=== PATIENT | female | born 1970 | race Caucasian/White ===

== ENCOUNTER 2016-11-17 12:37 | Inpatient (IN) | payer OTHER ==
[~2016-11-17] VITALS: Ht 165.1 cm; Wt 106.6 kg
[2016-11-17 13:38] LABS: HEMOGLOBIN 11.7 gm/dl (12.3-15.3); RED BLOOD COUNT 4.36 M/UL (4.00-5.10); WHITE BLOOD COUNT 14.3 K/UL (4.5-11.0)
[2016-11-17 13:50] LABS: BUN/CREATININE RATIO 16 (0-10)
[2016-11-18 07:33] LABS: HEMOGLOBIN 10.6 gm/dl (12.3-15.3)
[2016-11-18 07:34] LABS: WHITE BLOOD COUNT 9.8 K/UL (4.5-11.0)
[2016-11-18 07:48] LABS: BUN/CREATININE RATIO 18 (0-10)
[2016-11-18] MEDS ORDERED: LORTAB 10-3251 EACH PO (08:42)
[2016-11-18] MEDS ORDERED: NEURONTIN 400400 MG PO (08:43)
[2016-11-18] MEDS ORDERED: TRAMADOL HCL50 MG PO (08:43)
[2016-11-18] MEDS ORDERED: ROBAXIN 750 MG750 MG PO (08:45)
[2016-11-18] MEDS ORDERED: ASPIRIN81 MG PO (08:46)
[2016-11-18] MEDS ORDERED: NORVASC 5 MG TAB5 MG PO (08:46)
[2016-11-18] MEDS ORDERED: KLONOPIN TAB 00.5 MG PO (08:47)
[2016-11-18] MEDS ORDERED: PROTONIX40 MG PO (08:47)
[2016-11-18] MEDS ORDERED: CELEXA 20MG TAB20 MG PO (08:47)
[2016-11-18 14:54] LABS: ACINETOBACTER BAUMANNII Not Detected (Negative); CANDIDA ALBICANS Not Detected (Negative); CANDIDA KRUSEI Not Detected (Negative); CANDIDA TROPICALIS Not Detected (Negative); ENTEROCOCCUS Not Detected (Negative); ESCHERICHIA COLI Not Detected (Negative); HAEMOPHILUS INFLUENZAE Not Detected (Negative); KLEBSIELLA OXYTOCA Not Detected (Negative); KLEBSIELLA PNEUMONIAE Not Detected (Negative); KPC-CARBAPENEM-RESISTANCE GENE Not Detected (Negative); PROTEUS Not Detected (Negative); PSEUDOMONAS AERUGINOSA Not Detected (Negative); SERRATIA MARCESANS Not Detected (Negative); STAPHYLOCOCCUS AUREUS Not Detected (Negative); STREP AGALACTIAE (GROUP B) Not Detected (Negative); STREP PYOGENES (GROUP A) Not Detected (Negative); STREPTOCOCCUS Not Detected (Negative); mecA (METHICILLIN RESIST GENE Not Detected (Negative); vanA/B (VANCOMYCIN RESIST GENE Not Detected (Negative)
[2016-11-18 16:05] LABS: STAPHYLOCOCCUS DETECTED (Negative)
[2016-11-19 05:03] LABS: HEMOGLOBIN 10.4 gm/dl (12.3-15.3); RED BLOOD COUNT 3.95 M/UL (4.00-5.10); WHITE BLOOD COUNT 9.2 K/UL (4.5-11.0)
[2016-11-19 08:22] LABS: BUN/CREATININE RATIO 13 (0-10)
[2016-11-20 05:33] LABS: BUN/CREATININE RATIO 16 (0-10)
[2016-11-21 06:03] LABS: HEMOGLOBIN 9.7 gm/dl (12.3-15.3); RED BLOOD COUNT 3.64 M/UL (4.00-5.10)
[2016-11-21 06:04] LABS: WHITE BLOOD COUNT 4.8 K/UL (4.5-11.0)
[2016-11-21 06:23] LABS: BUN/CREATININE RATIO 18 (0-10)
[2016-11-22 05:48] LABS: HEMOGLOBIN 9.9 gm/dl (12.3-15.3); RED BLOOD COUNT 3.72 M/UL (4.00-5.10); WHITE BLOOD COUNT 4.9 K/UL (4.5-11.0)
[2016-11-22 06:39] LABS: BUN/CREATININE RATIO 18 (0-10)
[2016-11-22] MEDS ORDERED: IRON325 M1 PO (12:35)
[2016-11-22] MEDS ORDERED: BACTROBAN OINT22 GM EXT (12:36)
[2016-11-22] MEDS ORDERED: THERAGRAN TAB1 EA PO (12:36)
[2016-11-22] MEDS ORDERED: BACTRIM DS TAB1 EACH PO (12:36)
== END 2016-11-22 13:15 | disposition home or self-care (01) | DRG 854 ==
LOC: ER1 12:37 → ZEROF 16:47 → M/S 16:47
PROVIDERS: Emergency Medicine; Internal Medicine Infectious Disease; Surgery; ADMIT Family Medicine
PROC: 0J910ZZ Drainage of Face Subcutaneous Tissue and Fascia, Open Approach (ICD-10-PCS; principal; 2016-11-21 07:45)
DX: A41.9 Sepsis, unspecified organism (principal); L02.01 Cutaneous abscess of face; F11.20 Opioid dependence, uncomplicated; E87.2 Acidosis; L03.211 Cellulitis of face; I10 Essential (primary) hypertension; G89.4 Chronic pain syndrome; D50.9 Iron deficiency anemia, unspecified; E53.8 Deficiency of other specified B group vitamins; Z98.84 Bariatric surgery status; G62.9 Polyneuropathy, unspecified; R51 Headache; Z22.322 Carrier or suspected carrier of Methicillin resistant Staphylococcus aureus; E66.9 Obesity, unspecified; Z68.39 Body mass index [BMI] 39.0-39.9, adult; Z79.82 Long term (current) use of aspirin; Z79.899 Other long term (current) drug therapy; Z87.891 Personal history of nicotine dependence; Z82.49 Family history of ischemic heart disease and other diseases of the circulatory system; Z80.8 Family history of malignant neoplasm of other organs or systems
CPT/HCPCS: 36415; 71010; 80048; 80053; 80202; 81001; 82550; 82607; 82728; 82746; 82962; 83540; 83550; 83605; 84443; 85025; 85027; 86140; 87040; 87077; 87150; 87186; 96361; 96365; 96366; 96372; 96375; 99284; J1335; J1650; J1885; J2250; J2270; J3010; J3370; J7050; J7070; J7120

== ENCOUNTER 2016-12-14 21:21 | Emergency (ER) | payer OTHER ==
[~2016-12-14 21:21] MED LIST: ASPIRIN81 MG PO; BACTRIM DS TAB1 EACH PO; BACTROBAN OINT22 GM EXT; CELEXA 20MG TAB20 MG PO; IRON325 M1 PO; KLONOPIN TAB 00.5 MG PO; LORTAB 10-3251 EACH PO; NEURONTIN 400400 MG PO; NORVASC 5 MG TAB5 MG PO; PROTONIX40 MG PO; ROBAXIN 750 MG750 MG PO; THERAGRAN TAB1 EA PO; TRAMADOL HCL50 MG PO
[2016-12-14 23:07] LABS: HEMOGLOBIN 10.4 gm/dl (12.3-15.3); RED BLOOD COUNT 3.91 M/UL (4.00-5.10)
== END 2016-12-15 07:05 | disposition home or self-care (01) ==
LOC: ER1 21:21
PROVIDERS: Student in an Organized Health Care Education/Training Program
DX: J18.9 Pneumonia, unspecified organism (principal); R52 Pain, unspecified; I10 Essential (primary) hypertension; J44.9 Chronic obstructive pulmonary disease, unspecified; Z90.710 Acquired absence of both cervix and uterus
CPT/HCPCS: 36415; 71020; 80053; 81001; 82550; 82553; 83605; 83690; 83874; 83880; 84484; 85025; 87040; 87086; 93005; 94640; 94664; 96361; 96365; 99284; J0696; J1956; J7030; J7050

== ENCOUNTER 2016-12-16 08:56 | Observation (INO) | payer OTHER ==
[~2016-12-16] VITALS: Ht 162.6 cm; Wt 117.0 kg
[2016-12-16 11:04] LABS: HEMOGLOBIN 9.5 gm/dl (12.3-15.3); RED BLOOD COUNT 3.62 M/UL (4.00-5.10); WHITE BLOOD COUNT 14.2 K/UL (4.5-11.0)
[2016-12-16 11:27] LABS: BUN/CREATININE RATIO 11 (0-10)
[2016-12-17 04:44] LABS: HEMOGLOBIN 8.9 gm/dl (12.3-15.3); RED BLOOD COUNT 3.39 M/UL (4.00-5.10)
[2016-12-17 04:46] LABS: WHITE BLOOD COUNT 8.5 K/UL (4.5-11.0)
[2016-12-17 04:56] LABS: BUN/CREATININE RATIO 8 (0-10)
--- NOTE | 2016-12-17 15:09 | NUR ---
TELEMETRY CALLED ME TO STATE THAT THE PATIENT HAD A RUN OF NON-SUSTAINED VTACH THAT LASTED FOR 4-5 BEATS. I LOOKED OVER AT THE MONITOR AND THE PATIENT WAS NOT ON THE MONITOR. IT HAD HAPPENED AT 1225 AND IT WAS AROUND 1400. THE PATIENT WAS OFF THE MONITOR BECAUSE SHE WAS TAKING A SHOWER. I WENT TO ASSESS THE PATIENT AND SHE WAS STILL IN THE SHOWER. 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 SHE STATED SHE HAD NOT HAD ANY CHEST PAIN TODAY. HER BP WAS 128/70 AND HEART RATE WAS RUNNING 80S ON THE MONITOR. I CALLED AND SENT A STRIP DOWN TO HIM IN THE ED. HE CALLED ME BACK AND ORDERED AN ECHO AND A MAG LEVEL NOW.
[2016-12-18 04:19] LABS: HEMOGLOBIN 8.8 gm/dl (12.3-15.3); RED BLOOD COUNT 3.4 M/UL (4.00-5.10)
[2016-12-18 04:27] LABS: WHITE BLOOD COUNT 6.3 K/UL (4.5-11.0)
[2016-12-18 04:48] LABS: BUN/CREATININE RATIO 13 (0-10)
[2016-12-18] MEDS ORDERED: FLAGYL500 MG PO (16:17)
[2016-12-18] MEDS ORDERED: CEFUROXIME500 MG PO (16:17)
== END 2016-12-18 17:00 | disposition home or self-care (01) ==
LOC: ER1 08:56 → ZEROF 14:40 → MED SURG 4 14:40
PROVIDERS: Family Medicine; ADMIT Internal Medicine
DX: R09.02 Hypoxemia (principal); M79.7 Fibromyalgia; G89.4 Chronic pain syndrome; F11.20 Opioid dependence, uncomplicated; D63.8 Anemia in other chronic diseases classified elsewhere; E53.8 Deficiency of other specified B group vitamins; M19.90 Unspecified osteoarthritis, unspecified site; D72.829 Elevated white blood cell count, unspecified; R79.89 Other specified abnormal findings of blood chemistry; G62.9 Polyneuropathy, unspecified; E61.1 Iron deficiency; I10 Essential (primary) hypertension; Z86.14 Personal history of Methicillin resistant Staphylococcus aureus infection; Z98.84 Bariatric surgery status; Z90.710 Acquired absence of both cervix and uterus; Z79.899 Other long term (current) drug therapy; Z87.891 Personal history of nicotine dependence; Z82.49 Family history of ischemic heart disease and other diseases of the circulatory system
CPT/HCPCS: ECHO; 36415; 71010; 71020; 80048; 80053; 82550; 82553; 83605; 83735; 83874; 83880; 84484; 85025; 85027; 87040; 93005; 93306; 94640; 94664; 96360; 99285; G0378; J0696; J7030; J7050; Q0177

== ENCOUNTER 2017-01-12 02:58 | Inpatient (IN) | payer OTHER ==
[~2017-01-12] VITALS: Ht 162.6 cm; Wt 113.9 kg
[~2017-01-12 02:58] MED LIST changes: +CEFUROXIME500 MG PO; +FLAGYL500 MG PO
[2017-01-12 03:37] LABS: HEMOGLOBIN 10.7 gm/dl (12.3-15.3); RED BLOOD COUNT 4.04 M/UL (4.00-5.10); WHITE BLOOD COUNT 14.7 K/UL (4.5-11.0)
[2017-01-12 04:00] LABS: BUN/CREATININE RATIO 14 (0-10)
[2017-01-12] MEDS ORDERED: ULTRAM50 MG PO (07:47)
[2017-01-12] MEDS ORDERED: ASPIRIN CHEWABL81 MG PO (07:49)
[2017-01-12] MEDS ORDERED: HYDROXYZINE PAM25 MG PO (07:50)
[2017-01-12] MEDS ORDERED: VENLAFAXINE HCL75 MG PO (07:51)
[2017-01-12] MEDS ORDERED: BUSPIRONE HCL5 MG PO (07:54)
[2017-01-12] MEDS ORDERED: LASIX 40 MG TAB40 MG PO (07:56)
[2017-01-13 05:05] LABS: HEMOGLOBIN 9.3 gm/dl (12.3-15.3); WHITE BLOOD COUNT 12.1 K/UL (4.5-11.0)
[2017-01-13 05:06] LABS: RED BLOOD COUNT 3.57 M/UL (4.00-5.10)
[2017-01-13 05:24] LABS: BUN/CREATININE RATIO 16 (0-10)
[2017-01-14 04:27] LABS: HEMOGLOBIN 9.6 gm/dl (12.3-15.3); RED BLOOD COUNT 3.69 M/UL (4.00-5.10)
[2017-01-14 04:30] LABS: WHITE BLOOD COUNT 7.7 K/UL (4.5-11.0)
[2017-01-14] MEDS ORDERED: LEVAQUIN750 MG PO (17:23)
== END 2017-01-14 18:13 | disposition home or self-care (01) | DRG 871 ==
LOC: ER1 02:58 → MED SURG 4 06:02
PROVIDERS: Emergency Medicine; Internal Medicine Pulmonary Disease; ADMIT Internal Medicine
DX: A41.9 Sepsis, unspecified organism (principal); J18.9 Pneumonia, unspecified organism; Z68.41 Body mass index [BMI] 40.0-44.9, adult; E66.9 Obesity, unspecified; I10 Essential (primary) hypertension; D50.9 Iron deficiency anemia, unspecified; G62.9 Polyneuropathy, unspecified; M19.90 Unspecified osteoarthritis, unspecified site; G89.29 Other chronic pain; M79.7 Fibromyalgia; F43.10 Post-traumatic stress disorder, unspecified; F32.9 Major depressive disorder, single episode, unspecified; F41.9 Anxiety disorder, unspecified; Z87.01 Personal history of pneumonia (recurrent); Z87.891 Personal history of nicotine dependence; Z98.84 Bariatric surgery status; Z79.891 Long term (current) use of opiate analgesic; Z79.82 Long term (current) use of aspirin; Z79.1 Long term (current) use of non-steroidal anti-inflammatories (NSAID); Z79.899 Other long term (current) drug therapy; Z90.710 Acquired absence of both cervix and uterus; Z98.890 Other specified postprocedural states; Z82.49 Family history of ischemic heart disease and other diseases of the circulatory system
CPT/HCPCS: 36415; 71010; 71020; 71250; 80048; 80053; 80307; 81001; 82550; 82553; 82784; 83605; 83690; 83874; 84484; 85025; 85027; 85610; 85730; 86039; 86140; 86403; 86431; 87040; 87081; 87086; 87880; 93005; 96374; 96375; 99291; J1650; J1885; J1956; J2185; J3370; Q0177

== ENCOUNTER 2020-10-14 13:24 | Inpatient (IN) | payer OTHER, SELFPAY ==
[~2020-10-14] VITALS: Ht 162.6 cm; Wt 120.2 kg
[~2020-10-14 13:24] MED LIST changes: +ACID CONTROL150 MG PO; +ALBUTEROL2.5 MG/3 M NEB; +AMLODIPINE BESY10 MG PO; +ASPIRIN 325MG325 MG PO; +ASPIRIN CHEWABL81 MG PO; +ASPIRIN325 MG PO; +BUSPIRONE HCL5 MG PO; +COMBIVENT RESPIM4 GM INH; +DOXEPIN HCL10 MG PO; +DOXEPIN HCL25 MG PO; +EFFEXOR 37.537.5 MG PO; +ESCITALOPRAM OX10 MG PO; +FOLIC ACID 1 MG1 MG PO; +GABAPENTIN800 MG PO; +GLUCOPHAGE 500500 MG PO; +HYDROCHLOROTHIA25 MG PO; +HYDROXYCHLOROQ200 MG PO; +HYDROXYZINE PAM25 MG PO; +HYDROXYZINE PAM50 MG PO; +LAMOTRIGINE100 MG PO; +LASIX 40 MG TAB40 MG PO; +LEVAQUIN750 MG PO; +METHOTREXATE T2.5 MG PO; +MULTIVITAMINS1 EAC1 PO; +NORCO 10-325 T1 EACH PO; +PERCOCET 5-3251 EACH PO; +PREDNISONE20 MG PO; +PROTONIX 40 MG40 M1 PO; +RISPERIDONE0.5 MG PO; +ROBITUSSIN AC PO; +SEROQUEL100 MG PO; +ULTRAM50 MG PO; +VENLAFAXINE HCL75 MG PO; +VENTOLIN HFA 66.7 GM INH
[2020-10-14 14:24] LABS: HEMOGLOBIN 10.9 gm/dl (12.3-15.3); RED BLOOD COUNT 4.08 M/UL (4.00-5.10); WHITE BLOOD COUNT 17.5 K/UL (4.5-11.0)
[2020-10-14 14:51] LABS: BUN/CREATININE RATIO 13 (0-10)
[2020-10-14] MEDS ORDERED: PREDNISONE10 MG PO (19:41)
[2020-10-14] MEDS ORDERED: HYDROCODON-ACE1 EAC6 PO (19:42)
[2020-10-14] MEDS ORDERED: METHOTREXATE T2.5 MG PO (19:44)
[2020-10-14] MEDS ORDERED: METHOCARBAMOL500 MG PO (21:05)
[2020-10-14] MEDS ORDERED: BUMETANIDE2 MG PO (21:09)
[2020-10-15 05:28] LABS: HEMOGLOBIN 9.6 gm/dl (12.3-15.3)
[2020-10-15 05:30] LABS: RED BLOOD COUNT 3.61 M/UL (4.00-5.10); WHITE BLOOD COUNT 12.1 K/UL (4.5-11.0)
[2020-10-15 05:45] LABS: BUN/CREATININE RATIO 13 (0-10)
[2020-10-15 11:14] LABS: ACINETOBACTER BAUMANNII Not Detected (Negative); CANDIDA ALBICANS Not Detected (Negative); CANDIDA KRUSEI Not Detected (Negative); CANDIDA TROPICALIS Not Detected (Negative); ENTEROCOCCUS Not Detected (Negative); ESCHERICHIA COLI Not Detected (Negative); HAEMOPHILUS INFLUENZAE Not Detected (Negative); KLEBSIELLA OXYTOCA Not Detected (Negative); KLEBSIELLA PNEUMONIAE Not Detected (Negative); KPC-CARBAPENEM-RESISTANCE GENE Not Detected (Negative); PROTEUS Not Detected (Negative); PSEUDOMONAS AERUGINOSA Not Detected (Negative); SERRATIA MARCESANS Not Detected (Negative); STAPHYLOCOCCUS AUREUS Not Detected (Negative); STREP AGALACTIAE (GROUP B) Not Detected (Negative); STREP PYOGENES (GROUP A) Not Detected (Negative); STREPTOCOCCUS Not Detected (Negative); vanA/B (VANCOMYCIN RESIST GENE Not Detected (Negative)
[2020-10-15 12:39] LABS: STAPHYLOCOCCUS DETECTED (Negative); mecA (METHICILLIN RESIST GENE DETECTED (Negative)
[2020-10-16 04:22] LABS: BUN/CREATININE RATIO 12 (0-10)
[2020-10-17 03:44] LABS: HEMOGLOBIN 8.5 gm/dl (12.3-15.3)
[2020-10-17 03:50] LABS: RED BLOOD COUNT 3.21 M/UL (4.00-5.10); WHITE BLOOD COUNT 6.9 K/UL (4.5-11.0)
[2020-10-17 04:09] LABS: BUN/CREATININE RATIO 16 (0-10)
[2020-10-18] MEDS ORDERED: MEDROL4 MG PO (15:15)
[2020-10-18] MEDS ORDERED: OMNICEF 300 MG300 MG PO (15:15)
[2020-10-18] MEDS ORDERED: ANORO ELLIPTA1 EACH INH (15:15)
[2020-10-18 16:15] LABS: IMMUNOGLOBULIN G, QN, SERUM 655 mg/dL (586-1602)
[2021-01-02] MEDS ORDERED: AMOXICILLIN875 MG PO (15:48)
[2021-01-03] MEDS ORDERED: ZITHROMAX250 MG PO (15:48)
[2021-01-03] MEDS ORDERED: FLUCONAZOLE150 MG PO (15:48)
== END 2020-10-18 17:58 | disposition home or self-care (01) | DRG 871 ==
LOC: ER1 13:24 → CDU 15:13 → MED SURG 4 15:13
PROVIDERS: Internal Medicine; Nurse Practitioner Family; Physician Assistant Medical; ADMIT Internal Medicine
DX: A41.9 Sepsis, unspecified organism (principal); J18.9 Pneumonia, unspecified organism; J96.01 Acute respiratory failure with hypoxia; J44.0 Chronic obstructive pulmonary disease with (acute) lower respiratory infection; J44.1 Chronic obstructive pulmonary disease with (acute) exacerbation; Z68.42 Body mass index [BMI] 45.0-49.9, adult; R65.20 Severe sepsis without septic shock; Z20.822 Contact with and (suspected) exposure to COVID-19; D72.829 Elevated white blood cell count, unspecified; I10 Essential (primary) hypertension; F17.210 Nicotine dependence, cigarettes, uncomplicated; Z90.49 Acquired absence of other specified parts of digestive tract; Z98.84 Bariatric surgery status; Z87.01 Personal history of pneumonia (recurrent); Z86.14 Personal history of Methicillin resistant Staphylococcus aureus infection; Z79.899 Other long term (current) drug therapy; Z79.82 Long term (current) use of aspirin; E66.01 Morbid (severe) obesity due to excess calories
CPT/HCPCS: ECHO; 0240U; 36415; 36600; 71045; 71046; 80048; 80053; 80202; 82550; 82553; 82784; 82787; 82803; 82962; 83036; 83605; 83735; 83880; 84484; 85025; 85027; 85379; 86738; 87040; 87077; 87150; 87186; 93005; 93306; 94640; 94664; 94760; 96365; 96366; 96367; 99285; J1650; J1940; J2543; J2920; J3370; J7030; J7070

== ENCOUNTER → 2020-11-28 | Outpatient (CLI) | payer OTHER, SELFPAY ==
[~2020-11-28] MED LIST changes: +AMOXICILLIN875 MG PO; +ANORO ELLIPTA1 EACH INH; +BUMETANIDE2 MG PO; +CEFUROXIME250 MG PO; +DRISDOL1250 MCG PO; +FLUCONAZOLE150 MG PO; +HYDROCODON-ACE1 EAC6 PO; +LEXAPRO20 MG PO; +MAGIC MOUTHWASH PO; +MEDROL4 MG PO; +METHOCARBAMOL500 MG PO; +OMNICEF 300 MG300 MG PO; +PHENERGAN W/CO473 M1 PO; +PREDNISONE 20 M20 MG PO; +PREDNISONE10 MG PO; +PROVENTIL HFA6.7 GM INH; +TESSALON PERLE100 MG PO; +ZITHROMAX250 MG PO
== END ==
LOC: HEART 5 12:05
DX: L02.419 Cutaneous abscess of limb, unspecified (principal); F41.9 Anxiety disorder, unspecified; J44.9 Chronic obstructive pulmonary disease, unspecified
CPT/HCPCS: 36600; 71046; 82803; 94010

== ENCOUNTER 2020-12-13 12:21 | Emergency (ER) | payer OTHER, SELFPAY ==
[~2020-12-13 12:21] MED LIST changes: -AMOXICILLIN875 MG PO; -CEFUROXIME250 MG PO; -DRISDOL1250 MCG PO; -FLUCONAZOLE150 MG PO; -LEXAPRO20 MG PO; -MAGIC MOUTHWASH PO; -PHENERGAN W/CO473 M1 PO; -PREDNISONE 20 M20 MG PO; -PROVENTIL HFA6.7 GM INH; -TESSALON PERLE100 MG PO; -ZITHROMAX250 MG PO
[2020-12-13] MEDS ORDERED: TESSALON PERLE100 MG PO (15:26)
[2020-12-13] MEDS ORDERED: PROVENTIL HFA6.7 GM INH (15:26)
[2021-01-02] MEDS ORDERED: AMOXICILLIN875 MG PO (15:48)
[2021-01-03] MEDS ORDERED: ZITHROMAX250 MG PO (15:48)
[2021-01-03] MEDS ORDERED: FLUCONAZOLE150 MG PO (15:48)
== END 2020-12-13 16:20 | disposition home or self-care (01) ==
LOC: ER1 12:21
DX: J06.9 Acute upper respiratory infection, unspecified (principal); F17.210 Nicotine dependence, cigarettes, uncomplicated; Z20.822 Contact with and (suspected) exposure to COVID-19
CPT/HCPCS: 0240U; 71045; 99283

== ENCOUNTER 2021-01-04 08:02 | Inpatient (IN) | payer OTHER, SELFPAY ==
[~2021-01-04] VITALS: Ht 162.6 cm; Wt 122.5 kg
[~2021-01-04 08:02] MED LIST changes: +AMOXICILLIN875 MG PO; +FLUCONAZOLE150 MG PO; +PROVENTIL HFA6.7 GM INH; +TESSALON PERLE100 MG PO; +ZITHROMAX250 MG PO
[2021-01-04 09:00] LABS: HEMOGLOBIN 9.3 gm/dl (12.3-15.3); RED BLOOD COUNT 3.34 M/UL (4.00-5.10); WHITE BLOOD COUNT 8.8 K/UL (4.5-11.0)
[2021-01-04 10:56] LABS: BUN/CREATININE RATIO 15 (0-10)
[2021-01-04] MEDS ORDERED: PHENERGAN W/CO473 M1 PO (15:49)
[2021-01-04] MEDS ORDERED: DRISDOL1250 MCG PO (15:50)
[2021-01-04] MEDS ORDERED: BUMETANIDE2 MG PO (15:50)
[2021-01-04] MEDS ORDERED: MAGIC MOUTHWASH PO (15:50)
[2021-01-04] MEDS ORDERED: PREDNISONE 20 M20 MG PO (15:53)
[2021-01-04] MEDS ORDERED: LEXAPRO20 MG PO (21:08)
[2021-01-05 04:27] LABS: RED BLOOD COUNT 3.66 M/UL (4.00-5.10)
[2021-01-05 04:33] LABS: WHITE BLOOD COUNT 5.8 K/UL (4.5-11.0)
[2021-01-05 04:46] LABS: BUN/CREATININE RATIO 14 (0-10)
[2021-01-06 04:49] LABS: HEMOGLOBIN 9.4 gm/dl (12.3-15.3); RED BLOOD COUNT 3.42 M/UL (4.00-5.10)
[2021-01-06 04:57] LABS: WHITE BLOOD COUNT 3.9 K/UL (4.5-11.0)
[2021-01-06 07:01] LABS: BUN/CREATININE RATIO 14 (0-10)
[2021-01-08] MEDS ORDERED: CEFUROXIME250 MG PO (09:05)
== END 2021-01-08 11:24 | disposition home or self-care (01) | DRG 177 ==
LOC: ER1 08:02 → CDU 14:06 → MED SURG 4 16:07
PROVIDERS: Emergency Medicine; Physician Assistant Medical; ADMIT Internal Medicine
DX: J15.6 Pneumonia due to other Gram-negative bacteria (principal); J96.01 Acute respiratory failure with hypoxia; J44.0 Chronic obstructive pulmonary disease with (acute) lower respiratory infection; Z68.42 Body mass index [BMI] 45.0-49.9, adult; E87.6 Hypokalemia; I10 Essential (primary) hypertension; Z20.822 Contact with and (suspected) exposure to COVID-19; Z79.4 Long term (current) use of insulin; F17.210 Nicotine dependence, cigarettes, uncomplicated; M06.9 Rheumatoid arthritis, unspecified; M79.7 Fibromyalgia; E66.9 Obesity, unspecified; E11.9 Type 2 diabetes mellitus without complications; Z79.82 Long term (current) use of aspirin; Z86.14 Personal history of Methicillin resistant Staphylococcus aureus infection; Z87.01 Personal history of pneumonia (recurrent); Z90.49 Acquired absence of other specified parts of digestive tract; Z98.84 Bariatric surgery status
CPT/HCPCS: 0240U; 36415; 36600; 71045; 80048; 80053; 80202; 81001; 82550; 82553; 82803; 82962; 83605; 83690; 83735; 84132; 84484; 85025; 85027; 85379; 85610; 85730; 87040; 87081; 93005; 94640; 94664; 94760; 96374; 99285; J0696; J1650; J2543; J3370; J7030; J7070; Q9967

== ENCOUNTER → 2021-01-28 | Outpatient (CLI) | payer OTHER ==
[~2021-01-28] MED LIST changes: +CEFUROXIME250 MG PO; +DRISDOL1250 MCG PO; +LEXAPRO20 MG PO; +MAGIC MOUTHWASH PO; +PHENERGAN W/CO473 M1 PO; +PREDNISONE 20 M20 MG PO
== END ==
LOC: SLEEP 11:26
DX: G47.00 Insomnia, unspecified (principal); G47.30 Sleep apnea, unspecified; G47.33 Obstructive sleep apnea (adult) (pediatric); R09.02 Hypoxemia
CPT/HCPCS: 95810

== ENCOUNTER 2021-06-28 15:10 | Inpatient (IN) | payer OTHER ==
[~2021-06-28] VITALS: Ht 165.1 cm; Wt 108.9 kg
[2021-06-28 18:46] LABS: HEMOGLOBIN 12.2 gm/dl (12.3-15.3); RED BLOOD COUNT 4.29 M/UL (4.00-5.10); WHITE BLOOD COUNT 13.9 K/UL (4.5-11.0)
[2021-06-28 19:09] LABS: BUN/CREATININE RATIO 17 (0-10)
[2021-06-28] MEDS ORDERED: HUMIRA PEN40 MG/0.4 SQ (21:40)
[2021-06-28] MEDS ORDERED: BUPROPION XL150 MG PO (21:41)
[2021-06-29 06:23] LABS: HEMOGLOBIN 11.5 gm/dl (12.3-15.3); RED BLOOD COUNT 3.97 M/UL (4.00-5.10)
[2021-06-29 06:24] LABS: WHITE BLOOD COUNT 9.4 K/UL (4.5-11.0)
[2021-06-29 07:05] LABS: BUN/CREATININE RATIO 18 (0-10)
[2021-06-30 04:58] LABS: BUN/CREATININE RATIO 12 (0-10)
[2021-07-01 07:25] LABS: HEMOGLOBIN 11.1 gm/dl (12.3-15.3); RED BLOOD COUNT 3.75 M/UL (4.00-5.10); WHITE BLOOD COUNT 11.7 K/UL (4.5-11.0)
[2021-07-01 08:13] LABS: HIV SCREEN 4TH GENERATION WRFX Non Reactive (Non Reactive)
[2021-07-01 08:29] LABS: BUN/CREATININE RATIO 22 (0-10)
[2021-07-02 07:53] LABS: HEMOGLOBIN 11.4 gm/dl (12.3-15.3); RED BLOOD COUNT 3.98 M/UL (4.00-5.10)
[2021-07-02 08:01] LABS: WHITE BLOOD COUNT 8.1 K/UL (4.5-11.0)
[2021-07-02 08:20] LABS: BUN/CREATININE RATIO 25 (0-10)
[2021-07-03 07:44] LABS: BUN/CREATININE RATIO 29 (0-10)
[2021-07-03] MEDS ORDERED: PREDNISONE 20 M20 MG PO (12:26)
[2021-07-03] MEDS ORDERED: SENOKOT-S TABL1 EACH PO (12:39)
[2021-07-03 13:09] LABS: ANTI-DSDNA ANTIBODIES <1 IU/mL (0-9)
[2021-07-03 18:10] LABS: ANTIMYELOPEROXIDASE (MPO) ABS <9.0 U/mL (0.0-9.0); ANTIPROTEINASE 3 (PR-3) ABS <3.5 U/mL (0.0-3.5); ATYPICAL PANCA <1:20 titer (Neg:<1:20); CYTOPLASMIC (C-ANCA) <1:20 titer (Neg:<1:20); PERINUCLEAR (P-ANCA) <1:20 titer (Neg:<1:20)
[2021-07-05 10:14] LABS: ASPERGILLUS FUMAGATUS IGG Negative (Negative); AUREOBASIDIUM PULLULANS IGG Negative (Negative); MICROPOLYSPORA FAENI IGG Negative (Negative); PIGEON SERUM IGG Negative (Negative); THERMOACTINOMYCES SACCHARI IGG Negative (Negative); THERMOACTINOMYCES VULGARIS IGG Negative (Negative)
== END 2021-07-03 14:45 | disposition home or self-care (01) | DRG 205 ==
LOC: ER1 15:10 → M/S 20:46 → CDU 20:46 → M/S 06-29 01:25
PROVIDERS: Internal Medicine Infectious Disease; Internal Medicine Pulmonary Disease; Physician Assistant Medical; ADMIT Internal Medicine
DX: J70.4 Drug-induced interstitial lung disorders, unspecified (principal); J96.21 Acute and chronic respiratory failure with hypoxia; J96.22 Acute and chronic respiratory failure with hypercapnia; E87.1 Hypo-osmolality and hyponatremia; M32.9 Systemic lupus erythematosus, unspecified; M06.9 Rheumatoid arthritis, unspecified; Z20.822 Contact with and (suspected) exposure to COVID-19; E87.6 Hypokalemia; E66.01 Morbid (severe) obesity due to excess calories; I10 Essential (primary) hypertension; E11.65 Type 2 diabetes mellitus with hyperglycemia; T38.0X5A Adverse effect of glucocorticoids and synthetic analogues, initial encounter; F17.210 Nicotine dependence, cigarettes, uncomplicated; F32.A Depression, unspecified; J84.89 Other specified interstitial pulmonary diseases; G47.33 Obstructive sleep apnea (adult) (pediatric); M79.7 Fibromyalgia; G89.29 Other chronic pain; Z79.82 Long term (current) use of aspirin; Z98.890 Other specified postprocedural states; Z90.49 Acquired absence of other specified parts of digestive tract; Z98.84 Bariatric surgery status; Z79.899 Other long term (current) drug therapy; Z87.01 Personal history of pneumonia (recurrent); Z68.39 Body mass index [BMI] 39.0-39.9, adult
CPT/HCPCS: 36415; 36600; 71045; 71046; 71250; 80048; 80053; 80202; 82803; 82962; 83520; 83605; 85025; 85027; 85652; 86038; 86140; 86225; 86256; 86331; 86430; 86431; 86602; 86609; 86671; 87040; 87081; 87389; 93005; 94640; 94664; 94760; 96374; 96375; 99285; J0456; J0696; J1650; J2920; J2930; J3370; J7030; J7050; J8610; U0002

== ENCOUNTER 2021-07-23 16:37 | Inpatient (IN) | payer OTHER ==
[~2021-07-23] VITALS: Ht 162.6 cm; Wt 111.1 kg
[~2021-07-23 16:37] MED LIST changes: +BUPROPION XL150 MG PO; +HUMIRA PEN40 MG/0.4 SQ; +SENOKOT-S TABL1 EACH PO
[2021-07-23 17:32] LABS: HEMOGLOBIN 12.4 gm/dl (12.3-15.3); RED BLOOD COUNT 4.22 M/UL (4.00-5.10)
[2021-07-23 17:59] LABS: BUN/CREATININE RATIO 17 (0-10)
[2021-07-24 07:55] LABS: HEMOGLOBIN 12.2 gm/dl (12.3-15.3); RED BLOOD COUNT 4.31 M/UL (4.00-5.10); WHITE BLOOD COUNT 18.4 K/UL (4.5-11.0)
[2021-07-24 08:34] LABS: BUN/CREATININE RATIO 23 (0-10)
[2021-07-24] MEDS ORDERED: FLUTICASONE-SA1 EAC3 INH (11:15)
[2021-07-24] MEDS ORDERED: GLIPIZIDE ER5 MG PO (11:16)
[2021-07-24] MEDS ORDERED: VITAMIN D 40400 UNIT PO (11:18)
[2021-07-25 06:12] LABS: RED BLOOD COUNT 4.07 M/UL (4.00-5.10); WHITE BLOOD COUNT 14.7 K/UL (4.5-11.0)
[2021-07-25 07:06] LABS: BUN/CREATININE RATIO 17 (0-10)
[2021-07-25] MEDS ORDERED: WELLBUTRIN XL150 MG PO (08:46)
== END 2021-07-25 12:35 | disposition short-term general hospital (02) | DRG 871 ==
LOC: ER1 16:37 → MED SURG 4 18:58 → CDU 18:58 → MED SURG 4 07-24 00:57
PROVIDERS: Physician Assistant; ADMIT Internal Medicine
DX: A41.9 Sepsis, unspecified organism (principal); Z20.822 Contact with and (suspected) exposure to COVID-19; J80 Acute respiratory distress syndrome; J18.9 Pneumonia, unspecified organism; J44.0 Chronic obstructive pulmonary disease with (acute) lower respiratory infection; J90 Pleural effusion, not elsewhere classified; J84.9 Interstitial pulmonary disease, unspecified; D84.9 Immunodeficiency, unspecified; E87.2 Acidosis; Z68.41 Body mass index [BMI] 40.0-44.9, adult; F41.9 Anxiety disorder, unspecified; F32.A Depression, unspecified; E66.9 Obesity, unspecified; F17.210 Nicotine dependence, cigarettes, uncomplicated; I10 Essential (primary) hypertension; E11.9 Type 2 diabetes mellitus without complications; E78.5 Hyperlipidemia, unspecified; M06.9 Rheumatoid arthritis, unspecified; Z98.84 Bariatric surgery status; Z79.82 Long term (current) use of aspirin; Z98.891 History of uterine scar from previous surgery; Z90.710 Acquired absence of both cervix and uterus; Z79.4 Long term (current) use of insulin; Z90.49 Acquired absence of other specified parts of digestive tract
CPT/HCPCS: 0240U; 36415; 36600; 71045; 71250; 80053; 80202; 82550; 82553; 82803; 82962; 83605; 83874; 84484; 85025; 86140; 86738; 87040; 87081; 93005; 94640; 94664; 94760; 96374; 96375; 99285; J0456; J0692; J0696; J1650; J2920; J2930; J3370; J7030; J7070

== ENCOUNTER → 2021-08-14 | Outpatient (CLI) | payer OTHER ==
[~2021-08-14] MED LIST changes: +FLUTICASONE-SA1 EAC3 INH; +GLIPIZIDE ER5 MG PO; +VITAMIN D 40400 UNIT PO; +WELLBUTRIN XL150 MG PO
== END ==
LOC: EXRD 08:49
DX: Z00.00 Encounter for general adult medical examination without abnormal findings (principal)
CPT/HCPCS: 71046

== ENCOUNTER 2021-08-19 21:51 | Inpatient (IN) | payer OTHER ==
[~2021-08-19] VITALS: Ht 162.6 cm; Wt 117.9 kg
[2021-08-19 22:35] LABS: HEMOGLOBIN 12.5 gm/dl (12.3-15.3); RED BLOOD COUNT 4.31 M/UL (4.00-5.10); WHITE BLOOD COUNT 18.8 K/UL (4.5-11.0)
[2021-08-19 22:49] LABS: BUN/CREATININE RATIO 13 (0-10)
[2021-08-21 05:06] LABS: HEMOGLOBIN 10.7 gm/dl (12.3-15.3)
[2021-08-21 05:07] LABS: RED BLOOD COUNT 3.76 M/UL (4.00-5.10); WHITE BLOOD COUNT 12.1 K/UL (4.5-11.0)
[2021-08-21 05:20] LABS: BUN/CREATININE RATIO 19 (0-10)
[2021-08-23 06:55] LABS: HEMOGLOBIN 11.9 gm/dl (12.3-15.3); RED BLOOD COUNT 4.19 M/UL (4.00-5.10); WHITE BLOOD COUNT 10.5 K/UL (4.5-11.0)
[2021-08-23 07:33] LABS: BUN/CREATININE RATIO 18 (0-10)
[2021-08-24 06:47] LABS: HEMOGLOBIN 10.5 gm/dl (12.3-15.3); RED BLOOD COUNT 3.81 M/UL (4.00-5.10)
[2021-08-24 07:02] LABS: BUN/CREATININE RATIO 18 (0-10)
--- NOTE | 2021-08-24 08:14 | NUR ---
assisted by viral mcclellan and timothy terrell
[2021-08-24] MEDS ORDERED: LEVOFLOXACIN500 MG PO (10:51)
[2021-08-24] MEDS ORDERED: ROBITUSSIN (11:09)
[2021-08-24] MEDS ORDERED: PREDINSONE (11:09)
[2021-08-24] MEDS ORDERED: PREDNISONE 20 M20 MG PO (11:48)
[2021-08-24] MEDS ORDERED: ROBITUSSIN AC480 ML PO (11:49)
[2021-08-24] MEDS ORDERED: PREDNISONE20 MG PO (11:56)
== END 2021-08-24 12:50 | disposition home or self-care (01) | DRG 196 ==
LOC: ER1 21:51 → CDU 08-20 02:46 → M/S 08-20 02:46
PROVIDERS: Internal Medicine; Physician Assistant Medical; ADMIT Internal Medicine
DX: J84.9 Interstitial pulmonary disease, unspecified (principal); J96.21 Acute and chronic respiratory failure with hypoxia; E87.2 Acidosis; J44.1 Chronic obstructive pulmonary disease with (acute) exacerbation; J44.0 Chronic obstructive pulmonary disease with (acute) lower respiratory infection; Z68.41 Body mass index [BMI] 40.0-44.9, adult; M06.9 Rheumatoid arthritis, unspecified; I10 Essential (primary) hypertension; F17.200 Nicotine dependence, unspecified, uncomplicated; E11.9 Type 2 diabetes mellitus without complications; F32.A Depression, unspecified; E66.9 Obesity, unspecified; G47.33 Obstructive sleep apnea (adult) (pediatric); Z20.822 Contact with and (suspected) exposure to COVID-19; Z98.890 Other specified postprocedural states; Z90.49 Acquired absence of other specified parts of digestive tract; Z90.710 Acquired absence of both cervix and uterus; Z79.82 Long term (current) use of aspirin; Z79.899 Other long term (current) drug therapy; Z79.84 Long term (current) use of oral hypoglycemic drugs
CPT/HCPCS: 0240U; 36600; 71045; 71046; 80048; 80053; 82803; 82962; 83605; 83735; 83880; 85025; 85027; 86140; 87040; 94640; 94664; 94760; 96374; 96375; 99285; J0456; J0692; J1100; J1650; J2800; J2920; J3370; J7030; Q9967

== ENCOUNTER 2021-09-18 17:38 | Inpatient (IN) | payer OTHER ==
[~2021-09-18] VITALS: Ht 162.6 cm; Wt 113.4 kg
[~2021-09-18 17:38] MED LIST changes: +LEVOFLOXACIN500 MG PO; +PREDINSONE; +ROBITUSSIN; +ROBITUSSIN AC480 ML PO
[2021-09-18 18:31] LABS: HEMOGLOBIN 12.4 gm/dl (12.3-15.3); RED BLOOD COUNT 4.45 M/UL (4.00-5.10); WHITE BLOOD COUNT 22.6 K/UL (4.5-11.0)
[2021-09-18 19:34] LABS: BUN/CREATININE RATIO 10 (0-10)
[2021-09-19] MEDS ORDERED: PREDNISONE20 MG PO (02:52)
[2021-09-19] MEDS ORDERED: VITAMIN B-12250 MCG PO (02:53)
[2021-09-19 04:17] LABS: HEMOGLOBIN 11.5 gm/dl (12.3-15.3); RED BLOOD COUNT 4.1 M/UL (4.00-5.10); WHITE BLOOD COUNT 27.4 K/UL (4.5-11.0)
--- NOTE | 2021-09-19 04:53 | NUR ---
0019 NOTIFIED PROVIDER OF CRITICAL LACTIC ACID LEVEL. ORDERS TO CONTINUE FLUIDS AND ANTIBIOTICS AND RECHECK LABS IN AM
--- NOTE | 2021-09-19 06:26 | NUR ---
PATIENT DE SATS QUICKLY WITH ACTIVITY AND WAS INSTRUCTED TO US BEDSIDE JAMILA
--- NOTE | 2021-09-20 06:37 | NUR ---
patient given a specimen cup and instructed on how to give a sputum sample. cup is at the bedside and patient is to ring out when she has one. She currently hasn't experienced a productive cough.
[2021-09-20 06:52] LABS: HEMOGLOBIN 10.5 gm/dl (12.3-15.3); RED BLOOD COUNT 3.82 M/UL (4.00-5.10)
[2021-09-20 06:56] LABS: WHITE BLOOD COUNT 15.4 K/UL (4.5-11.0)
[2021-09-20 07:21] LABS: BUN/CREATININE RATIO 15 (0-10)
[2021-09-21 05:25] LABS: HEMOGLOBIN 10.5 gm/dl (12.3-15.3); RED BLOOD COUNT 3.75 M/UL (4.00-5.10); WHITE BLOOD COUNT 14.2 K/UL (4.5-11.0)
[2021-09-21 05:46] LABS: BUN/CREATININE RATIO 17 (0-10)
[2021-09-22 07:53] LABS: HEMOGLOBIN 10.5 gm/dl (12.3-15.3); RED BLOOD COUNT 3.84 M/UL (4.00-5.10)
[2021-09-22 07:54] LABS: WHITE BLOOD COUNT 7.5 K/UL (4.5-11.0)
[2021-09-22 08:51] LABS: BUN/CREATININE RATIO 19 (0-10)
[2021-09-22] MEDS ORDERED: PREDNISONE20 MG PO (11:56)
[2021-09-22] MEDS ORDERED: LEVOFLOXACIN750 MG PO (11:56)
== END 2021-09-22 11:57 | disposition home or self-care (01) | DRG 871 ==
LOC: ER1 17:38 → MED SURG 4 20:56 → CDU 20:56 → MED SURG 4 23:19
PROVIDERS: Internal Medicine; Internal Medicine Pulmonary Disease; Physician Assistant; ADMIT Internal Medicine
PROC: 5A0945A Assistance with Respiratory Ventilation, 24-96 Consecutive Hours, High Flow/Velocity Cannula (ICD-10-PCS; principal; 2021-09-19)
DX: A41.9 Sepsis, unspecified organism (principal); J18.9 Pneumonia, unspecified organism; J96.21 Acute and chronic respiratory failure with hypoxia; E66.2 Morbid (severe) obesity with alveolar hypoventilation; E87.2 Acidosis; Z68.41 Body mass index [BMI] 40.0-44.9, adult; Z20.822 Contact with and (suspected) exposure to COVID-19; M06.9 Rheumatoid arthritis, unspecified; F17.210 Nicotine dependence, cigarettes, uncomplicated; G89.29 Other chronic pain; F32.A Depression, unspecified; M79.7 Fibromyalgia; I10 Essential (primary) hypertension; E11.65 Type 2 diabetes mellitus with hyperglycemia; R65.20 Severe sepsis without septic shock; Z98.890 Other specified postprocedural states; Z90.49 Acquired absence of other specified parts of digestive tract; Z90.710 Acquired absence of both cervix and uterus; Z79.899 Other long term (current) drug therapy; Z79.84 Long term (current) use of oral hypoglycemic drugs; Z79.82 Long term (current) use of aspirin; Z79.52 Long term (current) use of systemic steroids
CPT/HCPCS: 0240U; 36415; 36600; 71045; 71046; 80048; 80053; 80202; 80307; 82550; 82553; 82803; 82962; 83605; 83874; 84484; 85025; 85027; 85652; 86038; 86140; 86430; 86431; 87040; 87081; 93005; 94640; 94660; 94664; 94760; 96374; 97161; 99285; J0456; J0692; J0696; J1205; J1650; J2920; J3370; J7030; J7070; Q9967; U0002

== ENCOUNTER 2021-10-17 21:11 | Inpatient (IN) | payer OTHER ==
[~2021-10-17] VITALS: Ht 162.6 cm; Wt 117.9 kg
[~2021-10-17 21:11] MED LIST changes: +LEVOFLOXACIN750 MG PO; +VITAMIN B-12250 MCG PO
[2021-10-17 21:59] LABS: HEMOGLOBIN 12.7 gm/dl (12.3-15.3); RED BLOOD COUNT 4.63 M/UL (4.00-5.10); WHITE BLOOD COUNT 24.9 K/UL (4.5-11.0)
[2021-10-18] MEDS ORDERED: HYDROCHLOROTHIA25 MG PO (08:33)
[2021-10-18] MEDS ORDERED: IRON18 MG PO (08:34)
[2021-10-18 10:53] LABS: WHITE BLOOD COUNT 29.9 K/UL (4.5-11.0)
[2021-10-18 10:54] LABS: RED BLOOD COUNT 4.11 M/UL (4.00-5.10)
[2021-10-18 11:11] LABS: BUN/CREATININE RATIO 13 (0-10)
[2021-10-19 04:19] LABS: HEMOGLOBIN 11.7 gm/dl (12.3-15.3); RED BLOOD COUNT 4.36 M/UL (4.00-5.10)
[2021-10-19 04:36] LABS: WHITE BLOOD COUNT 33.2 K/UL (4.5-11.0)
[2021-10-19 04:53] LABS: BUN/CREATININE RATIO 15 (0-10)
[2021-10-20 04:03] LABS: HEMOGLOBIN 10.4 gm/dl (12.3-15.3)
[2021-10-20 04:06] LABS: RED BLOOD COUNT 3.88 M/UL (4.00-5.10)
[2021-10-20 04:18] LABS: BUN/CREATININE RATIO 17 (0-10)
[2021-10-21 02:46] LABS: HEMOGLOBIN 10.9 gm/dl (12.3-15.3); RED BLOOD COUNT 4.06 M/UL (4.00-5.10); WHITE BLOOD COUNT 23.7 K/UL (4.5-11.0)
[2021-10-21 03:10] LABS: BUN/CREATININE RATIO 21 (0-10)
[2021-10-22 02:43] LABS: HEMOGLOBIN 11.5 gm/dl (12.3-15.3); RED BLOOD COUNT 4.32 M/UL (4.00-5.10); WHITE BLOOD COUNT 18.1 K/UL (4.5-11.0)
[2021-10-22 03:06] LABS: BUN/CREATININE RATIO 34 (0-10)
[2021-10-22 16:12] LABS: ORGANISM ID Not indicated. (.); SPECIMEN SOURCE Urine (.); STREPTOCOCCUS PNEUMONIAE AG Negative (Negative)
[2021-10-23 02:49] LABS: HEMOGLOBIN 11.5 gm/dl (12.3-15.3); RED BLOOD COUNT 4.36 M/UL (4.00-5.10); WHITE BLOOD COUNT 14.8 K/UL (4.5-11.0)
[2021-10-23 03:05] LABS: BUN/CREATININE RATIO 35 (0-10)
[2021-10-23 17:12] LABS: ANTISCLERODERMA-70 ANTIBODIES <0.2 AI (0.0-0.9)
[2021-10-24 03:42] LABS: BUN/CREATININE RATIO 33 (0-10)
[2021-10-24 04:02] LABS: HEMOGLOBIN 12.1 gm/dl (12.3-15.3); RED BLOOD COUNT 4.54 M/UL (4.00-5.10); WHITE BLOOD COUNT 17.9 K/UL (4.5-11.0)
[2021-10-24 15:14] LABS: DSDNA CRITHIDIA LUCILIAE IFA Negative (Negative)
[2021-10-24 19:09] LABS: ATYPICAL PANCA <1:20 titer (Neg:<1:20); CYTOPLASMIC (C-ANCA) <1:20 titer (Neg:<1:20); PERINUCLEAR (P-ANCA) <1:20 titer (Neg:<1:20)
[2021-10-24 23:09] LABS: RHEUMATOID FACTOR (RF) 14.8 IU/mL (<14.0)
[2021-10-25 04:06] LABS: HEMOGLOBIN 11.2 gm/dl (12.3-15.3); RED BLOOD COUNT 4.21 M/UL (4.00-5.10)
[2021-10-25 04:18] LABS: BUN/CREATININE RATIO 34 (0-10)
[2021-10-26 03:34] LABS: HEMOGLOBIN 11.2 gm/dl (12.3-15.3); RED BLOOD COUNT 4.2 M/UL (4.00-5.10); WHITE BLOOD COUNT 14.9 K/UL (4.5-11.0)
[2021-10-26 03:45] LABS: BUN/CREATININE RATIO 33 (0-10)
[2021-10-26] MEDS ORDERED: TAB-A-VITE TA400 MC1 PO (19:37)
[2021-10-26] MEDS ORDERED: LISINOPRIL10 MG PO (19:37)
[2021-10-26] MEDS ORDERED: IPRAT-ALBUT 0.5-3 ML NEB (19:37)
[2021-10-26] MEDS ORDERED: DOXYCYCLINE HY100 M2 PO (19:37)
[2021-10-26] MEDS ORDERED: OMNICEF 300 MG300 MG PO (19:39)
[2021-10-26] MEDS ORDERED: FLONASE 0.05% N16 GM (19:58)
== END 2021-10-26 20:30 | disposition home or self-care (01) | DRG 871 ==
LOC: ER1 21:11 → PROG CARE 10-18 05:28 → CDU 10-18 05:28 → PROG CARE 10-18 08:36
PROVIDERS: Internal Medicine; Physician Assistant; ADMIT Internal Medicine
PROC: 3E03329 Introduction of Other Anti-infective into Peripheral Vein, Percutaneous Approach (ICD-10-PCS; principal; 2021-10-17)
PROC: 3E0333Z Introduction of Anti-inflammatory into Peripheral Vein, Percutaneous Approach (ICD-10-PCS; 2021-10-17)
PROC: 5A0955A Assistance with Respiratory Ventilation, Greater than 96 Consecutive Hours, High Flow/Velocity Cannula (ICD-10-PCS; 2021-10-19)
PROC: 5A0935A Assistance with Respiratory Ventilation, Less than 24 Consecutive Hours, High Flow/Velocity Cannula (ICD-10-PCS; 2021-10-25)
DX: A41.9 Sepsis, unspecified organism (principal); J18.9 Pneumonia, unspecified organism; Z20.822 Contact with and (suspected) exposure to COVID-19; J96.21 Acute and chronic respiratory failure with hypoxia; J96.22 Acute and chronic respiratory failure with hypercapnia; J44.0 Chronic obstructive pulmonary disease with (acute) lower respiratory infection; J44.1 Chronic obstructive pulmonary disease with (acute) exacerbation; F11.20 Opioid dependence, uncomplicated; Z68.41 Body mass index [BMI] 40.0-44.9, adult; M79.7 Fibromyalgia; G89.4 Chronic pain syndrome; M06.9 Rheumatoid arthritis, unspecified; E66.01 Morbid (severe) obesity due to excess calories; I10 Essential (primary) hypertension; D72.828 Other elevated white blood cell count; T38.0X6A Underdosing of glucocorticoids and synthetic analogues, initial encounter; F32.A Depression, unspecified; E11.9 Type 2 diabetes mellitus without complications; R53.81 Other malaise; F17.210 Nicotine dependence, cigarettes, uncomplicated; Z99.81 Dependence on supplemental oxygen; Z90.49 Acquired absence of other specified parts of digestive tract; Z98.891 History of uterine scar from previous surgery; Z98.84 Bariatric surgery status; Z79.4 Long term (current) use of insulin; Z71.6 Tobacco abuse counseling; Z87.01 Personal history of pneumonia (recurrent); Z90.710 Acquired absence of both cervix and uterus
CPT/HCPCS: 0240U; 36415; 36600; 71045; 80048; 80053; 81001; 82803; 82962; 83605; 83735; 83880; 84100; 85025; 85027; 85652; 86038; 86140; 86200; 86235; 86255; 86256; 86431; 87040; 87070; 87086; 87205; 87278; 87899; 93005; 94640; 94664; 94760; 96365; 96366; 96367; 96375; 97161; 97165; 99285; J0456; J0692; J0696; J1100; J1335; J1650; J2405; J2543; J2920; J2930; J3370; J7030; J7070; Q9967

== ENCOUNTER → 2021-12-06 | Day surgery (SDC) | payer OTHER ==
[~2021-12-06] MED LIST changes: +DOXYCYCLINE HY100 M2 PO; +FLONASE 0.05% N16 GM; +IPRAT-ALBUT 0.5-3 ML NEB; +IRON18 MG PO; +LISINOPRIL10 MG PO; +NORVASC10 MG PO; +TAB-A-VITE TA400 MC1 PO; +VITAMIN C500 M4 PO; +VITAMIN D310 MC4 PO
[2021-12-06 10:53] LABS: BODY FLUID SOURCE BRONCHIAL LAVAGE; RBC (MANUAL) 7475; WBC (MANUAL) 45
== END | disposition home or self-care (01) ==
LOC: OR 06:13
PROVIDERS: Internal Medicine Pulmonary Disease
DX: J84.9 Interstitial pulmonary disease, unspecified (principal); J44.9 Chronic obstructive pulmonary disease, unspecified; G47.33 Obstructive sleep apnea (adult) (pediatric); D80.3 Selective deficiency of immunoglobulin G [IgG] subclasses; M06.9 Rheumatoid arthritis, unspecified; J96.21 Acute and chronic respiratory failure with hypoxia; E11.9 Type 2 diabetes mellitus without complications; K21.9 Gastro-esophageal reflux disease without esophagitis; I10 Essential (primary) hypertension; F17.210 Nicotine dependence, cigarettes, uncomplicated; Z79.82 Long term (current) use of aspirin; Z79.84 Long term (current) use of oral hypoglycemic drugs; Z79.899 Other long term (current) drug therapy
CPT/HCPCS: 71045; 76000; 82962; 87015; 87070; 87116; 87205; 87206; 89051; J2704; J7030

== ENCOUNTER 2021-12-16 18:03 | Inpatient (IN) | payer OTHER ==
[~2021-12-16] VITALS: Ht 162.6 cm; Wt 124.9 kg
[2021-12-16 18:59] LABS: HEMOGLOBIN 12.5 gm/dl (12.3-15.3); RED BLOOD COUNT 4.54 M/UL (4.00-5.10); WHITE BLOOD COUNT 29.7 K/UL (4.5-11.0)
[2021-12-16 19:14] LABS: BUN/CREATININE RATIO 11 (0-10)
[2021-12-16] MEDS ORDERED: JARDIANCE10 MG PO (23:53)
[2021-12-17 14:07] LABS: HEMOGLOBIN 12.7 gm/dl (12.3-15.3); RED BLOOD COUNT 4.65 M/UL (4.00-5.10); WHITE BLOOD COUNT 16.1 K/UL (4.5-11.0)
[2021-12-17 14:28] LABS: BUN/CREATININE RATIO 11 (0-10)
[2021-12-18 02:48] LABS: HEMOGLOBIN 11.7 gm/dl (12.3-15.3); RED BLOOD COUNT 4.33 M/UL (4.00-5.10)
[2021-12-18 03:24] LABS: BUN/CREATININE RATIO 12 (0-10)
[2021-12-18 22:16] LABS: CANDIDA ALBICANS Not Detected (Negative); CANDIDA KRUSEI Not Detected (Negative); CANDIDA TROPICALIS Not Detected (Negative); ESCHERICHIA COLI Not Detected (Negative); HAEMOPHILUS INFLUENZAE Not Detected (Negative); KLEBSIELLA OXYTOCA Not Detected (Negative); KLEBSIELLA PNEUMONIAE Not Detected (Negative); KPC-CARBAPENEM-RESISTANCE GENE Not Detected (Negative); PROTEUS Not Detected (Negative); PSEUDOMONAS AERUGINOSA Not Detected (Negative); SERRATIA MARCESANS Not Detected (Negative); STAPHYLOCOCCUS Not Detected (Negative); STAPHYLOCOCCUS AUREUS Not Detected (Negative); STREP AGALACTIAE (GROUP B) Not Detected (Negative); STREP PYOGENES (GROUP A) Not Detected (Negative); STREPTOCOCCUS Not Detected (Negative); vanA/B (VANCOMYCIN RESIST GENE Not Detected (Negative)
[2021-12-19 04:38] LABS: HEMOGLOBIN 11.5 gm/dl (12.3-15.3); RED BLOOD COUNT 4.3 M/UL (4.00-5.10); WHITE BLOOD COUNT 19.3 K/UL (4.5-11.0)
[2021-12-19 05:05] LABS: BUN/CREATININE RATIO 14 (0-10)
[2021-12-20 03:13] LABS: HEMOGLOBIN 10.8 gm/dl (12.3-15.3); RED BLOOD COUNT 4.03 M/UL (4.00-5.10); WHITE BLOOD COUNT 18.9 K/UL (4.5-11.0)
[2021-12-20 03:44] LABS: BUN/CREATININE RATIO 22 (0-10)
[2021-12-21 07:27] LABS: BUN/CREATININE RATIO 24 (0-10)
[2021-12-21 12:12] LABS: ORGANISM ID Not indicated. (.); SPECIMEN SOURCE Urine (.); STREPTOCOCCUS PNEUMONIAE AG Negative (Negative)
[2021-12-21] MEDS ORDERED: PREDNISONE 10 M10 MG PO (12:35)
[2021-12-21] MEDS ORDERED: AUGMENTIN 500-1 EACH PO (12:35)
== END 2021-12-21 15:41 | disposition home or self-care (01) | DRG 871 ==
LOC: ER1 18:03 → MED SURG 4 22:22 → CDU 22:22 → PROG CARE 22:22 → MED SURG 4 12-20 22:40
PROVIDERS: Internal Medicine; Physician Assistant; ADMIT Internal Medicine
PROC: 3E03329 Introduction of Other Anti-infective into Peripheral Vein, Percutaneous Approach (ICD-10-PCS; principal; 2021-12-16)
PROC: 5A0935A Assistance with Respiratory Ventilation, Less than 24 Consecutive Hours, High Flow/Velocity Cannula (ICD-10-PCS; 2021-12-18)
PROC: 5A09357 Assistance with Respiratory Ventilation, Less than 24 Consecutive Hours, Continuous Positive Airway Pressure (ICD-10-PCS; 2021-12-19)
PROC: 5A0945A Assistance with Respiratory Ventilation, 24-96 Consecutive Hours, High Flow/Velocity Cannula (ICD-10-PCS; 2021-12-20)
DX: A41.9 Sepsis, unspecified organism (principal); J96.21 Acute and chronic respiratory failure with hypoxia; J44.0 Chronic obstructive pulmonary disease with (acute) lower respiratory infection; J44.1 Chronic obstructive pulmonary disease with (acute) exacerbation; E87.2 Acidosis; F11.20 Opioid dependence, uncomplicated; Z68.42 Body mass index [BMI] 45.0-49.9, adult; Z20.822 Contact with and (suspected) exposure to COVID-19; J84.111 Idiopathic interstitial pneumonia, not otherwise specified; M06.9 Rheumatoid arthritis, unspecified; E66.01 Morbid (severe) obesity due to excess calories; E11.43 Type 2 diabetes mellitus with diabetic autonomic (poly)neuropathy; E11.9 Type 2 diabetes mellitus without complications; F41.9 Anxiety disorder, unspecified; G47.33 Obstructive sleep apnea (adult) (pediatric); F32.A Depression, unspecified; K59.00 Constipation, unspecified; G89.4 Chronic pain syndrome; F17.210 Nicotine dependence, cigarettes, uncomplicated; R65.20 Severe sepsis without septic shock; Z90.49 Acquired absence of other specified parts of digestive tract; Z98.890 Other specified postprocedural states; Z90.89 Acquired absence of other organs; Z71.6 Tobacco abuse counseling; Z99.81 Dependence on supplemental oxygen; Z79.4 Long term (current) use of insulin; Z79.82 Long term (current) use of aspirin; Z79.899 Other long term (current) drug therapy
CPT/HCPCS: 0240U; 36415; 36600; 71045; 80048; 80053; 80202; 81001; 82550; 82553; 82803; 82962; 83036; 83605; 83735; 83880; 84100; 84484; 85025; 85027; 87040; 87077; 87081; 87086; 87150; 87278; 87899; 93005; 94640; 94664; 94760; 96374; 99285; J0696; J1650; J2185; J2920; J3370; J7030; J7070

== ENCOUNTER → 2021-12-25 | Outpatient (CLI) | payer OTHER ==
[~2021-12-25] MED LIST changes: +AUGMENTIN 500-1 EACH PO; +JARDIANCE10 MG PO; +PREDNISONE 10 M10 MG PO
== END ==
LOC: HEART 5 14:37
DX: J18.9 Pneumonia, unspecified organism (principal); J90 Pleural effusion, not elsewhere classified
CPT/HCPCS: 71046; 94060; 94729

== ENCOUNTER 2022-03-29 15:39 | Inpatient (IN) | payer OTHER ==
[~2022-03-29] VITALS: Ht 162.6 cm; Wt 134.5 kg
[~2022-03-29 15:39] MED LIST changes: -IRON18 MG PO; -VITAMIN D310 MC4 PO; +VITAMIN D3125 MCG PO
[2022-03-29 16:58] LABS: HEMOGLOBIN 13.2 gm/dl (12.3-15.3); RED BLOOD COUNT 4.76 M/UL (4.00-5.10); WHITE BLOOD COUNT 25.7 K/UL (4.5-11.0)
[2022-03-29 17:00] LABS: BORDETELLA PARAPERTUSSIS Not Detected (Not Detectd); BORDETELLA PERTUSSIS Not Detected (Not Detectd); CHLAMYDIA PNEUMONIAE Not Detected (Not Detectd); CORONAVIRUS HKU1 Not Detected (Not Detectd); CORONAVIRUS NL63 Not Detected (Not Detectd); CORONAVIRUS OC43 Not Detected (Not Detectd); CORONOAVIRUS 229E Not Detected (Not Detectd); HUMAN METAPNEUMOVIRUS Not Detected (Not Detectd); HUMAN RHINOVIRUS/ENTEROVIRUS Not Detected (Not Detectd); INFLUENZA A Not Detected (Not Detectd); INFLUENZA B Not Detected (Not Detectd); MYCOPLASMA PNEUMONIAE Not Detected (Not Detectd); PARAINFLUENZA VIRUS 1 Not Detected (Not Detectd); PARAINFLUENZA VIRUS 2 Not Detected (Not Detectd); PARAINFLUENZA VIRUS 3 Not Detected (Not Detectd); PARAINFLUENZA VIRUS 4 Not Detected (Not Detectd); RESPIRATORY SYNCYTIAL VIRUS Not Detected (Not Detectd)
[2022-03-29 18:58] LABS: SARS-CoV-2 NOT DETECTED (Not Detectd)
[2022-03-30 04:07] LABS: HEMOGLOBIN 12.5 gm/dl (12.3-15.3); RED BLOOD COUNT 4.59 M/UL (4.00-5.10); WHITE BLOOD COUNT 23.1 K/UL (4.5-11.0)
[2022-03-30 04:22] LABS: BUN/CREATININE RATIO 17 (0-10)
[2022-03-30] MEDS ORDERED: BUMETANIDE2 MG PO (11:10)
[2022-03-30] MEDS ORDERED: GLIPIZIDE ER5 MG PO (11:10)
[2022-03-30] MEDS ORDERED: LACTULOSE10 GM/15 M PO (11:11)
[2022-03-30] MEDS ORDERED: METOPROLOL SUCC25 MG PO (11:12)
[2022-03-30] MEDS ORDERED: PERCOCET 5-3251 EACH PO (11:13)
[2022-03-30] MEDS ORDERED: LEVOCETIRIZINE D5 MG PO (11:14)
[2022-03-30] MEDS ORDERED: SPIRIVA RESPIMAT4 GM INH (11:17)
[2022-03-30] MEDS ORDERED: PREDNISONE20 MG PO (11:17)
[2022-03-30] MEDS ORDERED: POTASSIUM CHLO10 ME2 PO (11:19)
[2022-03-30] MEDS ORDERED: MULTIVITAMIN1 EACH PO (11:20)
[2022-03-30] MEDS ORDERED: VITAMIN B-12500 MCG PO (11:23)
[2022-03-30] MEDS ORDERED: BIOTIN1 MG PO (11:25)
[2022-03-30] MEDS ORDERED: DOCUSATE SODIU100 MG PO (11:25)
[2022-03-31 03:42] LABS: HEMOGLOBIN 12.5 gm/dl (12.3-15.3); RED BLOOD COUNT 4.56 M/UL (4.00-5.10)
[2022-03-31 03:48] LABS: WHITE BLOOD COUNT 35.4 K/UL (4.5-11.0)
[2022-03-31 04:04] LABS: BUN/CREATININE RATIO 16 (0-10)
[2022-04-01 07:38] LABS: HEMOGLOBIN 12.6 gm/dl (12.3-15.3); RED BLOOD COUNT 4.74 M/UL (4.00-5.10)
[2022-04-01 07:42] LABS: WHITE BLOOD COUNT 22.6 K/UL (4.5-11.0)
[2022-04-01 08:38] LABS: BUN/CREATININE RATIO 23 (0-10)
[2022-04-02 05:03] LABS: HEMOGLOBIN 12.5 gm/dl (12.3-15.3); RED BLOOD COUNT 4.6 M/UL (4.00-5.10); WHITE BLOOD COUNT 18.3 K/UL (4.5-11.0)
[2022-04-02 05:25] LABS: BUN/CREATININE RATIO 30 (0-10)
[2022-04-03 07:36] LABS: HEMOGLOBIN 13.7 gm/dl (12.3-15.3); WHITE BLOOD COUNT 14.4 K/UL (4.5-11.0)
[2022-04-03 07:37] LABS: RED BLOOD COUNT 5.2 M/UL (4.00-5.10)
[2022-04-03 08:12] LABS: BUN/CREATININE RATIO 39 (0-10)
[2022-04-04 07:38] LABS: HEMOGLOBIN 14.8 gm/dl (12.3-15.3); RED BLOOD COUNT 5.68 M/UL (4.00-5.10); WHITE BLOOD COUNT 14.9 K/UL (4.5-11.0)
[2022-04-04 07:51] LABS: BUN/CREATININE RATIO 42 (0-10)
[2022-04-05 05:55] LABS: HEMOGLOBIN 13.2 gm/dl (12.3-15.3); WHITE BLOOD COUNT 17.1 K/UL (4.5-11.0)
[2022-04-05 05:57] LABS: RED BLOOD COUNT 4.82 M/UL (4.00-5.10)
[2022-04-05 06:09] LABS: BUN/CREATININE RATIO 37 (0-10)
[2022-04-05] MEDS ORDERED: HYDROCHLOROTHIA25 MG PO (14:53)
[2022-04-05] MEDS ORDERED: AMOX TR-K CLV1 EAC4 PO (14:53)
[2022-04-05] MEDS ORDERED: LEVOFLOXACIN500 MG PO (14:53)
[2022-04-05] MEDS ORDERED: LISINOPRIL10 MG PO (14:53)
[2022-04-05] MEDS ORDERED: METOPROLOL SUCC50 MG PO (14:53)
[2022-04-05] MEDS ORDERED: ASPIRIN EC81 MG PO (14:53)
[2022-04-05] MEDS ORDERED: AMLODIPINE BESYL5 MG PO (14:53)
[2022-04-05] MEDS ORDERED: LANTUS100 UNIT/1 SQ (15:27)
[2022-04-06 06:22] LABS: HEMOGLOBIN 14.4 gm/dl (12.3-15.3); RED BLOOD COUNT 5.29 M/UL (4.00-5.10); WHITE BLOOD COUNT 20.9 K/UL (4.5-11.0)
[2022-04-06] MEDS ORDERED: HYDRALAZINE HCL25 MG PO (09:50)
[2022-04-06] MEDS ORDERED: HUMIBID LA TAB600 MG PO (16:15)
[2022-04-06] MEDS ORDERED: LISINOPRIL10 MG PO (16:51)
[2022-04-06] MEDS ORDERED: DEX4 GLUCOSE4 GM PO (16:56)
== END 2022-04-06 18:54 | disposition home or self-care (01) | DRG 871 ==
LOC: ER1 15:39 → CDU 18:17 → CCU 18:17 → PROG CARE 03-30 14:15 → CCU 03-31 14:50 → MED SURG 4 04-04 10:07
PROVIDERS: Internal Medicine; Physician Assistant Medical; Preventive Medicine Occupational Medicine; ADMIT Internal Medicine
PROC: 5A0945A Assistance with Respiratory Ventilation, 24-96 Consecutive Hours, High Flow/Velocity Cannula (ICD-10-PCS; principal; 2022-03-30)
PROC: 5A09357 Assistance with Respiratory Ventilation, Less than 24 Consecutive Hours, Continuous Positive Airway Pressure (ICD-10-PCS; 2022-04-02)
PROC: 5A0935A Assistance with Respiratory Ventilation, Less than 24 Consecutive Hours, High Flow/Velocity Cannula (ICD-10-PCS; 2022-04-03)
PROC: 5A09357 Assistance with Respiratory Ventilation, Less than 24 Consecutive Hours, Continuous Positive Airway Pressure (ICD-10-PCS; 2022-04-03)
PROC: 5A09357 Assistance with Respiratory Ventilation, Less than 24 Consecutive Hours, Continuous Positive Airway Pressure (ICD-10-PCS; 2022-04-05)
DX: A41.9 Sepsis, unspecified organism (principal); I50.33 Acute on chronic diastolic (congestive) heart failure; J15.9 Unspecified bacterial pneumonia; J96.21 Acute and chronic respiratory failure with hypoxia; J84.9 Interstitial pulmonary disease, unspecified; J44.1 Chronic obstructive pulmonary disease with (acute) exacerbation; J44.0 Chronic obstructive pulmonary disease with (acute) lower respiratory infection; Z68.42 Body mass index [BMI] 45.0-49.9, adult; E87.1 Hypo-osmolality and hyponatremia; I11.0 Hypertensive heart disease with heart failure; M06.9 Rheumatoid arthritis, unspecified; G89.29 Other chronic pain; F32.A Depression, unspecified; I16.0 Hypertensive urgency; E11.65 Type 2 diabetes mellitus with hyperglycemia; Z98.890 Other specified postprocedural states; E66.01 Morbid (severe) obesity due to excess calories; T38.0X5A Adverse effect of glucocorticoids and synthetic analogues, initial encounter; R65.20 Severe sepsis without septic shock; K59.00 Constipation, unspecified; Z79.82 Long term (current) use of aspirin; Z99.81 Dependence on supplemental oxygen; Z79.899 Other long term (current) drug therapy; Z91.14 Patient's other noncompliance with medication regimen; Z79.52 Long term (current) use of systemic steroids; Z87.891 Personal history of nicotine dependence; Z90.49 Acquired absence of other specified parts of digestive tract
CPT/HCPCS: 36415; 36600; 71045; 80048; 80053; 80202; 81001; 82009; 82550; 82553; 82565; 82803; 82962; 83605; 83690; 83735; 83880; 84484; 85025; 85027; 85652; 86140; 87040; 87081; 87086; 87633; 93005; 94640; 94660; 94664; 94760; 94762; 96365; 96366; 96367; 96375; 96376; 99285; J0360; J0456; J0696; J1650; J1885; J1940; J2543; J2920; J2930; J3370; J7030; J7050; J7070; P9047

== ENCOUNTER → 2022-05-03 | Outpatient (CLI) | payer OTHER ==
[~2022-05-03] MED LIST changes: +AMLODIPINE BESYL5 MG PO; +AMOX TR-K CLV1 EAC4 PO; +ASPIRIN EC81 MG PO; +BIOTIN1 MG PO; +DEX4 GLUCOSE4 GM PO; +DOCUSATE SODIU100 MG PO; +HUMIBID LA TAB600 MG PO; +HYDRALAZINE HCL25 MG PO; +LACTULOSE10 GM/15 M PO; +LANTUS100 UNIT/1 SQ; +LEVOCETIRIZINE D5 MG PO; +METOPROLOL SUCC25 MG PO; +METOPROLOL SUCC50 MG PO; +MULTIVITAMIN1 EACH PO; +POTASSIUM CHLO10 ME2 PO; +SPIRIVA RESPIMAT4 GM INH; +VITAMIN B-12500 MCG PO
== END ==
LOC: EXRD 10:19
DX: J96.21 Acute and chronic respiratory failure with hypoxia (principal); J44.9 Chronic obstructive pulmonary disease, unspecified
CPT/HCPCS: 71046